=== PATIENT | male | born 1970 | race Caucasian/White ===

== ENCOUNTER 2016-04-01 15:36 | Emergency (ER) | payer OTHER ==
[~2016-04-01] VITALS: Ht 185.4 cm; Wt 90.9 kg
[2016-04-01 15:40] VITALS: BP 107/71; PULSE 105; RESP 18; O2SAT 100
--- NOTE | 2016-04-01 16:54 | ED.REPORT ---
HPI-URI / Cough / Cold Date of Service Apr 01, 2016 ED Provider: Thelma Duarte History of Present Illness: symotoms are cough, body aches runny nose, ongoing for 4 days no medications. no primary care Nursing Notes Stated Complaint: POSSIBLE FLU Chief Complaint: FLU/Cold Symptoms Nursing Notes Reviewed: Yes (, no medications) Allergies: Coded Allergies: ibuprofen (Verified Allergy, Severe, 04/01/16) General Time Seen by MD: 16:52 Chief Complaint Cough, non-productive, Upper resp infection Hx Obtained From: Patient Onset Occurred: 4 days ago Symptom Duration: Since onset Past Medical History Past Medical History Denies: Asthma Past Surgical History denies Smoking History Current Every Day Smoker (1 pack a day for 30 years) Social History Alcohol Use: Denies alcohol use Drug Use: Denies drug use Occupation single 04/01/2016 Review of Systems Basic Review of Systems Cardiovascular: No chest pain, No dyspnea on exertion, No orthopnea, No parox noct dyspnea, No palpitations : No dysuria, No frequency Musculoskeletal: No extremity swelling, No extremity pain, Full range of motion , Joints NL Hematologic: No bleeding, No bruising Endocrine: No cold intolerance, No heat intolerance, No weight gain, No weight loss Psychiatric: Normal thought content Physical Exam Initial Vital Signs Vital Signs (First) Date Time Temp Pulse Resp B/P Pulse Ox O2 Delivery O2 Flow Rate FiO2 04/01/16 15:40 36.5 105 18 107/71 100 Room Air Initial VS: Reviewed, Vital signs normal Head / Eyes: Atraumatic, Normocephalic, PERRL Neck: Supple, Non-tender, Full range of motion Cardiovascular: Regular rate & rhythm, Heart sounds normal, Intact distal pulses Abdomen / GI: Soft, Non-tender, No guarding, No rebound, No distention Back: No CVA tenderness Lymphatic: No lymphadenopathy Extremities: Vascular intact, Neuro intact, No swelling, No tenderness Skin: Warm, Dry, No cyanosis Neurologic: Alert, Oriented, Nonfocal Psychiatric: Mood/affect normal, Behavior normal, Normal thought content General/Constitutional: Awake, Alert, No acute distress, Well appearing, Well developed, Well hydrated ENT: Atraumatic, Airway patent, Mucous membranes moist, Pharynx NL, No peritonsillar abscess Nose: Positive: Rhinorrhea Respiratory / Chest: Atraumatic, Breath sounds NL, Breath sounds = bilat, No respiratory distress Cardiovascular: Heart rate NL, Regular rhythm, Heart sounds NL, No gallop Abdomen: Atraumatic, Soft, Non-tender Interpretation & Diagnostics Lab Results Interpretation Lab Results Interpretation: influenza A positive Discharge & Departure Impression: Primary Impression: Influenza due to influenza A virus Disposition: Home Patient Instructions: Influenza (ED) Additional Instructions: The flu swab was positive for influenza A. Use tylenol 650 mg every 4 hours for fever and body aches. Use tessalon perles to help decrease the cough. You can use visteral to help with sleep and muscle relaxation this evening. I am sorry you have the flu. There is maybe 2 to 3 more days of feeling crummy. Please follow with primary care. Consider [facility] Referrals: [facility] EDSupervising Provider for APC: Emery Carroll MD copies to: [facility] Thelma Duarte Apr 01, 2016 16:54
== END 2016-04-01 18:28 | disposition home or self-care (01) ==
LOC: SED 15:36
DX: J10.89 Influenza due to other identified influenza virus with other manifestations (principal); F17.200 Nicotine dependence, unspecified, uncomplicated; Z88.6 Allergy status to analgesic agent